=== PATIENT | male | born 1985 | race Caucasian/White ===

== ENCOUNTER 2018-02-16 05:39 | Day surgery (SDC) | payer SELFPAY ==
[~2018-02-16] VITALS: Ht 180.3 cm; Wt 69.0 kg
[~2018-02-16 05:39] MED LIST: COLACE 100100 MG/CAP PO; FLOMAX 0.40.4 MG/CAP PO; MOTRIN 800800 MG/TAB; NORCO 325 MG-51 TAB PO; PERCOCET 325 MG1 TA2 PO; PYRIDIUM 100MG100 MG PO; URISTAT PO
[2018-02-16 05:56] VITALS: BP 121/66; PULSE 61; TEMP 98.3
[2018-02-16 09:04] VITALS: BP 109/63; PULSE 66; TEMP 98.3
[2018-02-16 09:15] VITALS: BP 121/86; PULSE 74
[2018-02-16 09:30] VITALS: BP 118/74; PULSE 72
== END 2018-02-16 09:55 | disposition home or self-care (01) ==
LOC: SDCO 05:39
DX: N20.1 Calculus of ureter (principal); F17.210 Nicotine dependence, cigarettes, uncomplicated
CPT/HCPCS: C1769; J0690; J1100; J1885; J2405; J2704; J3010; J7120; Q9967